=== PATIENT | female | born 1985 | race Asian ===

== ENCOUNTER 2017-04-05 02:16 | Emergency (ER) | payer OTHER ==
[~2017-04-05] VITALS: Ht 152.4 cm; Wt 55.0 kg
[2017-04-05] MEDS ORDERED: MAGNESIUM/ALUMINUM HYDROXIDE/SIMETHICONE 30ML UDC PO STA (03:06)
[2017-04-05] MEDS ORDERED: VISCOUS LIDOCAINE 2% 15 ML UDC PO STA (03:06)
[2017-04-05] MEDS ORDERED: ONDANSETRON HCL 4MG/2ML VIAL IV STA (03:06)
[2017-04-05] MEDS ORDERED: FAMOTIDINE 20MG/2ML VIAL IV STA (03:06)
[2017-04-05] MEDS ORDERED: SODIUM CHLORIDE 0.9% 1,000 ML IV ONE (03:06)
[2017-04-05 03:25] LABS: HEMATOCRIT. 43.2 % (36.0-48.0); HEMOGLOBIN. 14.2 g/dL (12.0-16.0); MEAN CORPUSCULAR HEMOGLOBIN 28.5 pg (28.0-32.0); MEAN CORPUSCULAR VOLUME 86.5 fL (81.0-99.0); MEAN PLATELET VOLUME 8.3 fl (7.4-10.4); PLATELET 245 x1000/uL (130-400); RED CELL DISTRIBUTION WIDTH 13.3 % (11.6-14.6)
[2017-04-05 03:31] LABS: INR 0.9; PROTHROMBIN TIME 9.8 sec (9.4-11.6)
[2017-04-05 03:36] LABS: HCG SCREEN NEGATIVE
[2017-04-05 03:37] LABS: CARBON DIOXIDE 25 mEq/L (21-32); CHLORIDE 109 mEq/L (98-107)
[2017-04-05 05:01] LABS: CLARITY URINE CLOUDY (CLEAR); COLOR URINE YELLOW (YELLOW); KETONES URINE NEGATIVE (NEGATIVE); LEUKOCYTE ESTERASE URINE TRACE (NEGATIVE); NITRITE URINE NEGATIVE (NEGATIVE); OCCULT BLOOD URINE NEGATIVE (NEGATIVE); PROTEIN URINE NEGATIVE (NEGATIVE); SPECIFIC GRAVITY URINE 1.024 (1.005-1.030); UROBILINOGEN URINE 0.2 E.U./dL (0.2-1.0)
[2017-04-05 05:22] LABS: ATYPICAL LYMPHOCYTES 1; PLATELET ESTIMATE NORMAL
[2017-04-05 05:59] VITALS: BP 93/60
== END 2017-04-05 05:59 | disposition home or self-care (01) ==
LOC: ER 02:16
DX: N39.0 Urinary tract infection, site not specified (principal); D72.829 Elevated white blood cell count, unspecified
CPT/HCPCS: 36415; 80053; 81001; 83690; 84703; 85025; 85610; 96361; 96374; 96375; 99284; J2405; J3490; J7030